=== PATIENT | female | born 1960 | race African-American/Black ===

== ENCOUNTER 2019-01-31 08:16 | Emergency (ER) | payer OTHER, BC ==
[2019-01-31 08:25] VITALS: BP 120/73; PULSE 99; TEMP 97.9; BMI 34.7
[2019-01-31] MEDS ORDERED: IBUPROFEN 400 MG TABLET (FP) PO ONE ×2 (09:03→09:20)
--- NOTE | 2019-01-31 09:03 | PDOC ---
History of Present Illness - General Chief Complaint: Injury Stated Complaint: LT FOOT INJURY Time Seen by Provider: 01/31/19 08:25 - History of Present Illness Initial Comments: 01/31/19 09:03 CHIEF COMPLAINT: toe pain HISTORY OF PRESENT ILLNESS: 58 yo F presents to [facility] with left foot pain. Patient reports that she was at work when a crate rolled over her toes two days ago. She reports pain when walking but states she is weight bearing and ambulatory. No recent travel or sick contacts. PAST MEDICAL HISTORY: Denies past medical history FAMILY HISTORY: Denies SOCIAL HISTORY: Denies tobacco, alcohol, illicit drug use. SURGICAL HISTORY: Denies ALLERGIES: No known drug allergies REVIEW OF SYSTEMS General/Constitutional: Denies fever or chills. Denies weakness, weight change. HEENT: Denies change in vision. Denies ear pain or discharge. Denies sore throat. Cardiovascular: Denies chest pain or shortness of breath. Respiratory: Denies cough, wheezing, or hemoptysis. Gastrointestinal: Denies nausea, vomiting, diarrhea or constipation. Denies rectal bleeding. Genitourinary: Denies dysuria, frequency, or change in urination. Musculoskeletal: Left 3rd and 4th toe pain. Skin and breasts: Denies rash or easy bruising. Neurologic: Denies headache, vertigo, loss of consciousness, or loss of sensation. Psychiatric: Denies depression or anxiety. PHYSICAL EXAM General Appearance: Well-appearing, appropriately dressed. No apparent distress , no intoxication. HEENT: EOMI, PERRLA, normal ENT inspection, normal voice, TMs normal, pharynx normal. No conjunctival pallor. No photophobia, scleral icterus. Neck: Supple. Trachea midline. No tenderness, rigidity, carotid bruit, stridor , lymphadenopathy, or thyromegaly. Respiratory/Chest: Lungs CTAB. No shortness of breath, chest tenderness, respiratory distress, accessory muscle use. No crackles, rales, rhonchi, stridor , wheezing, dullness Cardiovascular: RRR. S1, S2. No JVD, murmur, bradycardia, tachycardia. Vascular Pulses: Dorsalis-Pedis (R): 2+, Dorsalis-Pedis (L): 2+ Gastrointestinal/Abdominal: Normal bowel sounds. Abdomen soft, non-distended. No tenderness or rebound tenderness. No organomegaly, pulsatile mass, guarding , hernia, hepatomegaly, splenomegaly. Lymphatic: No adenopathy, tenderness. Musculoskeletal/Extremities: Mild tenderness to dorsal aspect of 3rd and 4th left toes. Normal inspection. FROM of all extremities, normal capillary refill. Pelvis Stable. No CVA tenderness. No tenderness to extremities, pedal edema, swelling, erythema or deformity. Integumentary: Appropriate color, dry, warm. No cyanosis, erythema, jaundice or rash Neurologic: nursing director II-XII intact. Fully oriented, alert. Appropriate mood/affect. Motor strength 5/5. No appreciable EOM palsy, facial droop or sensory deficit. Past History - Past Medical History Allergies/Adverse Reactions: Allergies Allergy/AdvReac Type Severity Reaction Status Date / Time Opioids - Morphine Analogues Allergy Verified 01/31/19 08:25 Home Medications: Ambulatory Orders Ibuprofen 600 mg PO TID #30 tablet 01/31/19 COPD: No HTN: Yes - Psycho Social/Smoking Cessation Hx Smoking History: Current every day smoker Number of Cigarettes Smoked Daily: 3 Information on smoking cessation initiated: No Hx Alcohol Use: No Drug/Substance Use Hx: No *Physical Exam - Vital Signs Last Vital Signs Temp Pulse Resp BP Pulse Ox 97.9 F 99 H 16 120/73 96 01/31/19 08:22 01/31/19 08:22 01/31/19 08:22 01/31/19 08:22 01/31/19 08:22 ED Treatment Course - RADIOLOGY Radiology Studies Ordered: Category Date Time Status FOOT-LEFT [RAD] Stat Radiology 01/31/19 08:28 Taken Medical Decision Making - Medical Decision Making 01/31/19 13:17 58 yo F presents to fast track with left toe pain. foot xray motrin xray negative for fracture/dislocation. post op shoe applied. Discharge - Discharge Information Problems reviewed: Yes Clinical Impression/Diagnosis: Sprain of foot, left Qualifiers: Encounter type: initial encounter Qualified Code(s): S93.602A - Unspecified sprain of left foot, initial encounter Condition: Stable Disposition: HOME - Admission No - Additional Discharge Information Prescriptions: Ibuprofen 600 mg PO TID #30 tablet - Follow up/Referral Referrals: Valeriy Weiner MD [Primary Care Provider] - - Patient Discharge Instructions - Post Discharge Activity Work/Back to School Note: Back to Work
== END 2019-01-31 09:50 | disposition home or self-care (01) ==
LOC: JERFT 08:16
DX: S93.602A Unspecified sprain of left foot, initial encounter (principal); W20.8XXA Other cause of strike by thrown, projected or falling object, initial encounter; Y93.89 Activity, other specified; Y92.512 Supermarket, store or market as the place of occurrence of the external cause; Y99.0 Civilian activity done for income or pay; Z88.5 Allergy status to narcotic agent
CPT/HCPCS: 73630-TC-LT; 99281-25

== ENCOUNTER 2019-02-09 08:58 | Emergency (ER) | payer OTHER, BC ==
[2019-02-09 09:04] VITALS: BP 104/71; PULSE 90; TEMP 98.1; BMI 35.6
--- NOTE | 2019-02-09 09:17 | PDOC ---
History of Present Illness - General Chief Complaint: Pain, Acute Stated Complaint: PAIN Time Seen by Provider: 02/09/19 09:05 History Source: Patient Exam Limitations: No Limitations Past History - Travel Traveled outside of the country in the last 30 days: No Close contact w/someone who was outside of country & ill: No - Past Medical History Allergies/Adverse Reactions: Allergies Allergy/AdvReac Type Severity Reaction Status Date / Time Opioids - Morphine Analogues Allergy Verified 02/09/19 09:03 Home Medications: Ambulatory Orders Ibuprofen 600 mg PO TID #30 tablet 01/31/19 Acetaminophen [Tylenol -] 650 mg PO Q4H #30 tablet 02/09/19 COPD: No HTN: Yes - Psycho Social/Smoking Cessation Hx Smoking History: Current every day smoker Number of Cigarettes Smoked Daily: 4 Information on smoking cessation initiated: No Hx Alcohol Use: No Drug/Substance Use Hx: No Review of Systems - Review of Systems Able to Perform ROS?: Yes Comments:: 02/09/19 09:14 CONSTITUTIONAL: Absent: fever, chills, diaphoresis, generalized weakness, malaise, loss of appetite MUSCULOSKELETAL: Present: L foot pain Absent: myalgia, arthralgia, joint swelling SKIN: Absent: rash, itching, pallor NEUROLOGIC: Absent: headache, focal weakness or paresthesias, dizziness, unsteady gait, seizure, mental status changes, bladder or bowel incontinence PSYCHIATRIC: Absent: anxiety, depression, suicidal or homicidal ideation, hallucinations. Is the patient limited Kazakh proficient: No *Physical Exam - Vital Signs Last Vital Signs Temp Pulse Resp BP Pulse Ox 98.1 F 90 14 104/71 96 02/09/19 09:01 02/09/19 09:01 02/09/19 09:01 02/09/19 09:01 02/09/19 09:01 - Physical Exam Comments: 02/09/19 09:15 GENERAL: The patient is awake, alert, and fully oriented, in no acute distress. HEAD: Normal with no signs of trauma. EYES: Pupils equal, round and reactive to light, extraocular movements intact, sclera anicteric, conjunctiva clear. EXTREMITIES: Tenderness to palpation of the plantar surface of the left foot between toes 2 and 3. No obvious deformity, no neuromas felt. Normal range of motion, no edema. NEUROLOGICAL: Normal speech, normal gait. PSYCH: Normal mood, normal affect. SKIN: Warm, Dry, normal turgor, no rashes or lesions noted. Medical Decision Making - Medical Decision Making 02/09/19 09:27 The patient is a 58-year-old female who presents to the ER today for left foot pain. She was seen in our ED on 01/31/2019 for the same issue. She states on that day she had an injury at work where a melissa with a pallet ran over her foot. She states she had x-rays done at that time. She has been taking Motrin at home with little relief of her symptoms. She has not seen orthopedics for this issue yet. Denies fevers, chills, numbness and tingling to the extremity and weakness the affected extremity. A/P: Left foot pain On exam tenderness palpation of the plantar surface of the left foot between toes 2 and 3 with no obvious deformities or neuromas. X-ray from the seventh reviewed. No obvious deformities. Negative for fractures as read by Dr. Gallardo. Likely a sprain, however will need more imaging if pain does not improve. Will refer to orthopedics at this time. Finch bulky dressing applied. Will add Tylenol to pain management Discharge home I discussed the physical exam findings, ancillary test results and final diagnoses with the patient. I answered all of the patient's questions. The patient was satisfied with the care received and felt comfortable with the discharge plan and treatment plan. The Patient agrees to follow up with the primary care physician/specialist within 24-72 hours. Return precautions were given. Discharge - Discharge Information Problems reviewed: Yes Clinical Impression/Diagnosis: Sprain of foot, left Qualifiers: Encounter type: subsequent encounter Qualified Code(s): S93.602D - Unspecified sprain of left foot, subsequent encounter Disposition: HOME - Admission No - Follow up/Referral Referrals: Clay Pierre MD [Staff Physician] - - Patient Discharge Instructions Patient Printed Discharge Instructions: DI for Foot Pain Additional Instructions: You were evaluated for your foot pain today. Your x-ray from your last visit was negative for fractures. You may apply a Finch bulky dressing like we have in the ED to help offset the pain on your foot. Take the Motrin as directed. You may also take Tylenol 650 mg every 4 hours as needed for pain not to exceed 4000 mg a day. Please follow-up with orthopedics this week. A referral has been provided for you. Return to the ER for any new or worsening symptoms. - Post Discharge Activity Work/Back to School Note: Back to Work
== END 2019-02-09 09:38 | disposition home or self-care (01) ==
LOC: JERFT 08:58
DX: S93.602D Unspecified sprain of left foot, subsequent encounter (principal); W20.8XXD Other cause of strike by thrown, projected or falling object, subsequent encounter; Y92.512 Supermarket, store or market as the place of occurrence of the external cause; Y99.0 Civilian activity done for income or pay; Z88.5 Allergy status to narcotic agent
CPT/HCPCS: 99281-25

== ENCOUNTER 2020-07-17 03:59 | Day surgery (SDC) | payer BC, OTHER ==
[2020-06-17 13:48] VITALS: BMI 34.7
[~2020-07-17 03:59] MED LIST: BUPIVACAINE HCL/PF 0.5% (5 MG/ML) 30 ML VIAL IJ ONE; LIDOCAINE HCL 1% PRESERVATIVE FREE - 30ML VIAL IJ ONE
[2020-07-17] MEDS ORDERED: LIDOCAINE HCL/PF 1% SDV 5ML VIAL ONE (07:15)
[2020-07-17] MEDS ORDERED: IOHEXOL 180 MG/1 ML ML IJ ONE ×2 (08:58)
[2020-07-17] MEDS ORDERED: LIDOCAINE HCL 1% PRESERVATIVE FREE - 30ML VIAL IJ ONE (09:05)
[2020-07-17] MEDS ORDERED: BUPIVACAINE HCL/PF 0.5% (5 MG/ML) 30 ML VIAL IJ ONE (09:10)
[2020-07-17 09:55] VITALS: BP 134/83; PULSE 79; TEMP 98.2
== END 2020-07-17 10:01 | disposition home or self-care (01) ==
LOC: JASU-SURG 03:59
PROVIDERS: ATTEND Pain Medicine Pain Medicine
PROC: BR14YZZ Fluoroscopy of Cervical Facet Joint(s) using Other Contrast (ICD-10-PCS; 2020-07-17)
PROC: 3E0T3BZ Introduction of Anesthetic Agent into Peripheral Nerves and Plexi, Percutaneous Approach (ICD-10-PCS; principal; 2020-07-17 09:00)
DX: M47.812 Spondylosis without myelopathy or radiculopathy, cervical region (principal)
CPT/HCPCS: 76000-TC-FY

== ENCOUNTER 2020-08-21 04:09 | Day surgery (SDC) | payer BC, OTHER ==
[2020-08-19 14:29] VITALS: BMI 34.7
[2020-08-21 07:19] VITALS: TEMP 97.8
[2020-08-21] MEDS ORDERED: LIDOCAINE HCL/PF 1% SDV 5ML VIAL ONE (07:27)
[2020-08-21] MEDS ORDERED: BUPIVACAINE HCL/PF 0.5% (5MG/ML) 10 ML VIAL ONE (07:27)
[2020-08-21] MEDS ORDERED: SODIUM CHLORIDE 0.9% P/F 10 ML VIAL IJ ONE (07:34)
[2020-08-21] MEDS ORDERED: IOHEXOL 180 MG/1 ML ML IJ ONE (08:15)
[2020-08-21] MEDS ORDERED: LIDOCAINE HCL 1% PRESERVATIVE FREE - 30ML VIAL IJ ONE (08:16)
[2020-08-21] MEDS ORDERED: BUPIVACAINE HCL/PF 0.75% 10 ML VIAL NR ONE (08:16)
[2020-08-21 08:54] VITALS: BP 113/65; PULSE 89
== END 2020-08-21 08:40 | disposition home or self-care (01) ==
LOC: JASU-SURG 04:09
PROVIDERS: ATTEND Pain Medicine Pain Medicine
PROC: BR16YZZ Fluoroscopy of Lumbar Facet Joint(s) using Other Contrast (ICD-10-PCS; 2020-08-21)
PROC: 3E0T3BZ Introduction of Anesthetic Agent into Peripheral Nerves and Plexi, Percutaneous Approach (ICD-10-PCS; principal; 2020-08-21 09:00)
DX: M47.816 Spondylosis without myelopathy or radiculopathy, lumbar region (principal)
CPT/HCPCS: 76000-TC-FY

== ENCOUNTER 2020-10-16 04:28 | Day surgery (SDC) | payer BC, OTHER ==
[2020-10-07 11:06] VITALS: BMI 34.7
[2020-10-16] MEDS ORDERED: LIDOCAINE HCL/PF 1% SDV 5ML VIAL ONE (07:41)
[2020-10-16 09:31] VITALS: BP 135/80; PULSE 86; TEMP 98.6
== END 2020-10-16 09:40 | disposition home or self-care (01) ==
LOC: JASU-SURG 04:28
PROVIDERS: ATTEND Pain Medicine Pain Medicine
PROC: BR16YZZ Fluoroscopy of Lumbar Facet Joint(s) using Other Contrast (ICD-10-PCS; 2020-10-16)
PROC: 3E0T3BZ Introduction of Anesthetic Agent into Peripheral Nerves and Plexi, Percutaneous Approach (ICD-10-PCS; principal; 2020-10-16 09:08)
DX: M47.816 Spondylosis without myelopathy or radiculopathy, lumbar region (principal)
CPT/HCPCS: 76000-TC-FY

== ENCOUNTER 2021-09-24 03:55 | Day surgery (SDC) | payer BC, OTHER ==
[2021-09-21 18:54] VITALS: BMI 34.7
[2021-09-24] MEDS ORDERED: LIDOCAINE HCL/PF 1% SDV 5ML VIAL ONE (07:04)
[2021-09-24] MEDS ORDERED: BUPIVACAINE HCL/PF 0.75% 10 ML VIAL ONE (07:04)
[2021-09-24] MEDS ORDERED: DEXAMETHASONE SOD PHOSPHATE 10 MG/1 ML VIAL ONE (07:05)
[2021-09-24] MEDS ORDERED: LIDOCAINE HCL/PF 2% SDV 5ML VIAL ONE (07:11)
[2021-09-24] MEDS ORDERED: LIDOCAINE 1% P/F 10 MG/ML VIAL INF ONE ×2 (09:09→09:45)
[2021-09-24] MEDS ORDERED: LIDOCAINE HCL/PF 2% SDV 5ML VIAL SQ ONE ×2 (09:14→09:45)
[2021-09-24] MEDS ORDERED: DEXAMETHASONE SOD PHOSPHATE 10 MG/1 ML VIAL IVPB ONE (09:14)
[2021-09-24 10:32] VITALS: BP 144/64; PULSE 57; TEMP 98.8
== END 2021-09-24 10:35 | disposition home or self-care (01) ==
LOC: JASU-SURG 03:55
PROVIDERS: ATTEND Pain Medicine Pain Medicine
PROC: BR16YZZ Fluoroscopy of Lumbar Facet Joint(s) using Other Contrast (ICD-10-PCS; 2021-09-24)
PROC: 3E0T3TZ Introduction of Destructive Agent into Peripheral Nerves and Plexi, Percutaneous Approach (ICD-10-PCS; principal; 2021-09-24 09:15)
DX: M47.816 Spondylosis without myelopathy or radiculopathy, lumbar region (principal)
CPT/HCPCS: 76000-TC-FY; J1100